=== PATIENT | female | born 1965 | race Caucasian/White ===

== ENCOUNTER 2017-07-03 09:47 | Emergency (ER) | payer MEDICARE, MEDICAID ==
[~2017-07-03] VITALS: Ht 162.6 cm; Wt 134.0 kg
[~2017-07-03 09:47] MED LIST: ASPI-1265 PO; CARV-50 PO; DOCU-20 PO; EZET10TA13 PO; HYDR-3965 PO; ISOS30TA9 PO; LANTUS SQ; LEVO100T9 PO; MIRT15TA PO; PRAV80TA3 PO; SEVE800T7 PO; ZAR5T PO
[2017-07-03] MEDS ORDERED: aspirin 81mg tab.chew PO ONE (09:55)
[2017-07-03] MEDS ORDERED: nitroGLYCERIN 0.4mg SUBLingual tab SL PRN ×2 (09:55→11:10)
[2017-07-03 10:12] LABS: BASOPHILS % (AUTO) 0.4 % (0-1); EOSINOPHILS # (AUTO) 0.2 X10'3 (0-0.9); EOSINOPHILS % (AUTO) 3.1 % (0-6); HEMATOCRIT 34.1 % (35.0-45.0); HEMOGLOBIN 11.5 g/dl (12.0-16.0); LYMPHOCYTES # (AUTO) 0.8 X10'3 (1.1-4.8); LYMPHOCYTES % (AUTO) 12.6 % (21-51); MEAN CORPUSCULAR HEMOGLOBIN 30.4 PG (27.0-31.0); MEAN CORPUSCULAR HGB CONC 33.8 % (33.0-36.5); MEAN PLATELET VOLUME 8.5 FL (7.4-10.4); MONOCYTES # (AUTO) 0.4 X10'3 (0-0.9); MONOCYTES % (AUTO) 6.2 % (2-12); NEUTROPHILS % (AUTO) 77.7 % (42-75); PLATELET COUNT 199 X10'3 (140-440); RED BLOOD COUNT 3.79 X10'6 (4.20-5.60); RED CELL DISTRIBUTION WIDTH 15.7 % (11.5-14.5); WHITE BLOOD COUNT 6.4 X10'3 (4.5-11.0)
[2017-07-03 10:21] LABS: PROTHROMBIN TIME 10.7 SECONDS (9.0-12.0)
[2017-07-03 10:34] LABS: ALANINE AMINOTRANSFERASE 12 U/L (12-78); ALBUMIN 2.8 G/DL (3.4-5.0); ALBUMIN/GLOBULIN RATIO 0.7 (1.1-1.5); ALKALINE PHOSPHATASE 73 IU/L (46-116); ANION GAP 7 (8-16); ASPARTATE AMINO TRANSFERASE 11 U/L (10-37); BILIRUBIN,TOTAL 0.8 MG/DL (0.1-1.0); BLOOD UREA NITROGEN 35 MG/DL (7-18); BUN/CREATININE RATIO 9.1 (6.6-38.0); CALCIUM 8.7 MG/DL (8.5-10.1); CHLORIDE 101 MMOL/L (99-107); CREATININE 3.86 MG/DL (0.40-0.90); GLUCOSE 275 MG/DL (70-104); POTASSIUM 4.4 MMOL/L (3.5-5.1); SODIUM 135 MMOL/L (135-145); TOTAL CARBON DIOXIDE 26.9 MMOL/L (24-32); TOTAL PROTEIN 6.8 G/DL (6.4-8.2); eGFR 12 ML/MIN
[2017-07-03 12:17] VITALS: BP 149/87
== END 2017-07-03 12:19 | disposition home or self-care (01) ==
LOC: ER 09:48
DX: R07.9 Chest pain, unspecified (principal); N18.6 End stage renal disease; E11.42 Type 2 diabetes mellitus with diabetic polyneuropathy; E11.22 Type 2 diabetes mellitus with diabetic chronic kidney disease; I13.2 Hypertensive heart and chronic kidney disease with heart failure and with stage 5 chronic kidney disease, or end stage renal disease; M79.7 Fibromyalgia; I25.2 Old myocardial infarction; I50.9 Heart failure, unspecified; G89.29 Other chronic pain; Z90.710 Acquired absence of both cervix and uterus; Z86.73 Personal history of transient ischemic attack (TIA), and cerebral infarction without residual deficits; Z79.82 Long term (current) use of aspirin; Z99.2 Dependence on renal dialysis; Z79.4 Long term (current) use of insulin; Z79.899 Other long term (current) drug therapy
CPT/HCPCS: 36415; 71045; 80053; 83880; 84484; 85025; 85610; 93005; 99285

== ENCOUNTER 2017-12-13 02:08 | Emergency (ER) | payer MEDICARE, MEDICAID ==
[~2017-12-13] VITALS: Ht 162.6 cm; Wt 123.9 kg
[2017-12-13] MEDS ORDERED: HYDR-3965 PO (02:42)
[2017-12-13] MEDS ORDERED: HYDROcodone/acetaminophen 5mg/325mg tablet PO ONE (02:45)
[2017-12-13 03:11] VITALS: BP 130/94
== END 2017-12-13 03:13 | disposition home or self-care (01) ==
LOC: ER 02:08
DX: S80.12XA Contusion of left lower leg, initial encounter (principal); M79.604 Pain in right leg; I10 Essential (primary) hypertension; E11.42 Type 2 diabetes mellitus with diabetic polyneuropathy; G89.29 Other chronic pain; M54.9 Dorsalgia, unspecified; Z79.4 Long term (current) use of insulin; Z86.73 Personal history of transient ischemic attack (TIA), and cerebral infarction without residual deficits; Z90.710 Acquired absence of both cervix and uterus; Z90.49 Acquired absence of other specified parts of digestive tract; Z79.82 Long term (current) use of aspirin; X58.XXXA Exposure to other specified factors, initial encounter; Y93.89 Activity, other specified; Y92.89 Other specified places as the place of occurrence of the external cause; Y99.8 Other external cause status
CPT/HCPCS: 99283

== ENCOUNTER 2018-04-16 10:21 | Emergency (ER) | payer MEDICARE, MEDICAID ==
[~2018-04-16] VITALS: Ht 162.6 cm; Wt 124.0 kg
[2018-04-16 10:47] LABS: BASOPHILS % (AUTO) 0.3 % (0-1); EOSINOPHILS # (AUTO) 0.1 X10'3 (0-0.9); EOSINOPHILS % (AUTO) 3.1 % (0-6); HEMATOCRIT 32.1 % (35.0-45.0); HEMOGLOBIN 10.9 g/dl (12.0-16.0); LYMPHOCYTES # (AUTO) 0.6 X10'3 (1.1-4.8); LYMPHOCYTES % (AUTO) 12.5 % (21-51); MEAN CORPUSCULAR HEMOGLOBIN 32.4 PG (27.0-31.0); MEAN CORPUSCULAR VOLUME 95.5 FL (78-98); MEAN PLATELET VOLUME 8.1 FL (7.4-10.4); MONOCYTES # (AUTO) 0.4 X10'3 (0-0.9); MONOCYTES % (AUTO) 8.5 % (2-12); NEUTROPHILS # (AUTO) 3.6 X10'3 (1.8-7.7); NEUTROPHILS % (AUTO) 75.6 % (42-75); PLATELET COUNT 187 X10'3 (140-440); RED BLOOD COUNT 3.37 X10'6 (4.20-5.60); RED CELL DISTRIBUTION WIDTH 15.8 % (11.5-14.5); WHITE BLOOD COUNT 4.8 X10'3 (4.5-11.0)
[2018-04-16 11:02] LABS: ALANINE AMINOTRANSFERASE 19 U/L (12-78); ALBUMIN 2.9 G/DL (3.4-5.0); ALBUMIN/GLOBULIN RATIO 0.7 (1.1-1.5); ALKALINE PHOSPHATASE 86 IU/L (46-116); ANION GAP 9 (8-16); ASPARTATE AMINO TRANSFERASE 16 U/L (10-37); BILIRUBIN,TOTAL 0.7 MG/DL (0.1-1.0); BLOOD UREA NITROGEN 22 MG/DL (7-18); BUN/CREATININE RATIO 8.1 (6.6-38.0); CALCIUM 8.7 MG/DL (8.5-10.1); CHLORIDE 99 MMOL/L (99-107); CREATININE 2.73 MG/DL (0.40-0.90); GLUCOSE 193 MG/DL (70-104); POTASSIUM 3.7 MMOL/L (3.5-5.1); SODIUM 140 MMOL/L (135-145); TOTAL CARBON DIOXIDE 32.5 MMOL/L (24-32); TOTAL PROTEIN 7.3 G/DL (6.4-8.2); eGFR 18 ML/MIN
[2018-04-16 12:42] LABS: CLARITY,URINE SLIGHTLY CLOUDY (Clear); COLOR,URINE YELLOW (Yellow); GLUCOSE, URINE 500 mg/dl (Neg); KETONES,URINE NEGATIVE (Neg); LEUKOCYTE ESTERASE ,URINE NEGATIVE (Neg); NITRITES, URINE NEGATIVE (Neg); OCCULT BLOOD,URINE TRACE-LYSED (Neg); PROTEIN,URINE >=300 mg/dl (Neg); UA COLLECTION TYPE NON-SPECIFIED; UROBILINOGEN,URINE 0.2 E.U/dL (0.2-1.0)
[2018-04-16 12:47] LABS: SQUAMOUS EPITHELIAL CELL,UR MANY /LPF (FEW)
[2018-04-16 12:50] LABS: URINE AMPHETAMINE SCREEN NEGATIVE (Neg); URINE BARBITUATE SCREEN NEGATIVE (Neg); URINE BENZODIAZEPINES SCREEN NEGATIVE (Neg); URINE CANNABINOID SCREEN NEGATIVE (Neg); URINE COCAINE SCREEN NEGATIVE (Neg); URINE METHADONE SCREEN NEGATIVE (Neg); URINE OPIATE SCREEN POSITIVE (Neg); URINE PHENCYCLIDINE SCREEN NEGATIVE (Neg)
[2018-04-16 12:51] LABS: BACTERIA,URINE 2+ /HPF (Neg); WBC,URINE 0-4 /HPF (0-4)
[2018-04-16 12:52] LABS: MUCUS STRANDS FEW /LPF (Neg)
--- NOTE | 2018-04-16 13:42 | NUR ---
EMILY CARGO WILL BE HERE AT 2505
--- NOTE | 2018-04-16 13:42 | NUR ---
EMILY CARGO GERMÁN BE HERE AT 11
[2018-04-16 14:02] VITALS: BP 131/88
== END 2018-04-16 14:08 | disposition home or self-care (01) ==
LOC: ER 10:22
DX: T42.6X1A Poisoning by other antiepileptic and sedative-hypnotic drugs, accidental (unintentional), initial encounter (principal); R40.0 Somnolence; R42 Dizziness and giddiness; R53.83 Other fatigue; I10 Essential (primary) hypertension; G89.29 Other chronic pain; Z86.73 Personal history of transient ischemic attack (TIA), and cerebral infarction without residual deficits; Z90.49 Acquired absence of other specified parts of digestive tract; Z90.710 Acquired absence of both cervix and uterus; Z98.890 Other specified postprocedural states; Z79.82 Long term (current) use of aspirin; Z79.4 Long term (current) use of insulin; Z79.899 Other long term (current) drug therapy; Y92.89 Other specified places as the place of occurrence of the external cause
CPT/HCPCS: 36415; 71045; 80053; 80305; 81001; 84443; 85025; 99284

== ENCOUNTER 2018-05-14 06:24 | Inpatient (IN) | payer MEDICARE, MEDICAID | END 2018-06-03 17:30 | LOC: ER 06:24 → ED HOLD 08:45 → PCU 3S 13:42 | DX: A41.9 Sepsis, unspecified organism (principal); J18.9 Pneumonia, unspecified organism; N18.6 End stage renal disease; T82.858A Stenosis of other vascular prosthetic devices, implants and grafts, initial encounter; E11.8 Type 2 diabetes mellitus with unspecified complications; Z85.72 Personal history of non-Hodgkin lymphomas; N61.0 Mastitis without abscess ==

== ENCOUNTER 2018-09-20 11:00 | Inpatient (IN) | payer MEDICARE, MEDICAID ==
[~2018-09-20] VITALS: Ht 162.6 cm; Wt 106.5 kg
[~2018-09-20 11:00] MED LIST changes: +AMIT100T61 PO; -ASPI-1265 PO; -CARV-50 PO; +CHOL50004 PO; +COL100C PO; +DIPH-423 PO; -DOCU-20 PO; -EZET10TA13 PO; +FURO80TA3 PO; +HEPA500017 SQ; -HYDR-3965 PO; +HYDR-4383 PO; +INSU100V5 IJ; -ISOS30TA9 PO; +LACT10SO32 PO; -LEVO100T9 PO; +LEVO125T8 PO; -MIRT15TA PO; +MULT1TAB74 PO; +NITR0.4T SL; +PRAM0.5T12 PO; -PRAV80TA3 PO; +PREG150C PO; +ROSU40TA22 PO; -SEVE800T7 PO; +SEVE800T8 PO; +SULF1TAB49 PO; -ZAR5T PO; +ZET10T PO; +ZOF4I IV
[2018-09-20] MEDS ORDERED: ondansetron/PF 4mg/2ml inj IV ONE ×2 (12:30→13:40)
[2018-09-20] MEDS ORDERED: morphine 4 MG/ML inj SYRINge IV ONE (12:30)
[2018-09-20] MEDS ORDERED: morphine 4 MG/ML inj SYRINge IV PRN (13:40)
[2018-09-20 14:15] LABS: BASOPHILS % (AUTO) 0.6 % (0-1); EOSINOPHILS # (AUTO) 0.1 X10'3 (0-0.9); EOSINOPHILS % (AUTO) 1.1 % (0-6); HEMATOCRIT 38.7 % (35.0-45.0); HEMOGLOBIN 12.6 g/dl (12.0-16.0); LYMPHOCYTES # (AUTO) 0.8 X10'3 (1.1-4.8); LYMPHOCYTES % (AUTO) 11.5 % (21-51); MEAN CORPUSCULAR HGB CONC 32.5 g/dL (33.0-36.5); MEAN CORPUSCULAR VOLUME 95.2 FL (78-98); MONOCYTES # (AUTO) 0.6 X10'3 (0-0.9); MONOCYTES % (AUTO) 7.6 % (2-12); NEUTROPHILS # (AUTO) 5.8 X10'3 (1.8-7.7); NEUTROPHILS % (AUTO) 79.2 % (42-75); PLATELET COUNT 172 X10'3 (140-440); RED BLOOD COUNT 4.06 X10'6 (4.20-5.60); RED CELL DISTRIBUTION WIDTH 18.4 % (11.5-14.5); WHITE BLOOD COUNT 7.3 X10'3 (4.5-11.0)
[2018-09-20 14:36] LABS: ALANINE AMINOTRANSFERASE 36 U/L (12-78); ALBUMIN 3.2 G/DL (3.4-5.0); ALBUMIN/GLOBULIN RATIO 0.7 (1.1-1.5); ALKALINE PHOSPHATASE 122 IU/L (46-116); ANION GAP 8 (8-16); ASPARTATE AMINO TRANSFERASE 22 U/L (10-37); BILIRUBIN,TOTAL 0.5 MG/DL (0.1-1.0); BLOOD UREA NITROGEN 42 MG/DL (7-18); BUN/CREATININE RATIO 7.9 (6.6-38.0); CALCIUM 8.3 MG/DL (8.5-10.1); CHLORIDE 95 MMOL/L (99-107); CREATININE 5.29 MG/DL (0.40-0.90); GLUCOSE 225 MG/DL (70-104); MAGNESIUM 2.5 MG/DL (1.5-2.4); PHOSPHORUS 5.1 MG/DL (2.3-4.5); POTASSIUM 4.4 MMOL/L (3.5-5.1); SODIUM 133 MMOL/L (135-145); TOTAL CARBON DIOXIDE 30.5 MMOL/L (24-32); eGFR 8 ML/MIN
[2018-09-20] MEDS ORDERED: bisacodyl 10mg suppository rectal RC PRN (14:45)
[2018-09-20] MEDS ORDERED: ondansetron/PF 4mg/2ml inj IV PRN (14:45)
[2018-09-20] MEDS ORDERED: acetaminophen 325mg tablet PO PRN (14:45)
[2018-09-20] MEDS ORDERED: diphenhydrAMINE 25mg capsule PO PRN (14:45)
[2018-09-20] MEDS ORDERED: dextrose 50%-water 50ml dispensing syringe IV PRN ×2 (14:50)
[2018-09-20] MEDS ORDERED: insulin Lispro (HumaLOG) vial - multi-dose SQ SCH (14:50)
[2018-09-20] MEDS ORDERED: dextrose ORAL solution 15 GM/59 ML bottle PO PRN ×2 (14:50)
[2018-09-20] MEDS ORDERED: glucagon, human recombinant 1mg kit SUBCUT PRN (14:50)
[2018-09-20] MEDS ORDERED: MESSAGE TO PHARMACY PO ONE (14:50)
[2018-09-20] MEDS ORDERED: CARV3.122 PO (15:20)
[2018-09-20] MEDS ORDERED: LEVO100T PO (15:20)
[2018-09-20] MEDS ORDERED: ATOR40TA71 PO (15:20)
[2018-09-20] MEDS ORDERED: INSU100I31 SQ (15:20)
[2018-09-20 15:21] LABS: HEMOGLOBIN A1C 8.1 % (4.5-6.2)
[2018-09-20] MEDS ORDERED: HYDR-4353 PO (15:22)
[2018-09-20] MEDS ORDERED: NOVLG SQ (15:31)
[2018-09-20] MEDS ORDERED: FURO-149 PO (15:31)
[2018-09-20] MEDS ORDERED: FURO40TA4 PO (15:31)
--- NOTE | 2018-09-20 15:35 | NUR ---
Patient in room ORTHO 4006. I have received report from Eric RN in ED and had the opportunity to ask questions and assume patient care.
[2018-09-20] MEDS ORDERED: POLY17PO36 PO (15:36)
[2018-09-20] MEDS ORDERED: ZAR5T PO (15:36)
[2018-09-20] MEDS ORDERED: PRAM0.5T3 PO ×2 (15:41)
[2018-09-20] MEDS ORDERED: ASPI81TA49 PO (15:44)
[2018-09-20] MEDS ORDERED: DIALYVITE PO (15:49)
[2018-09-20 16:00] VITALS: BP 129/71
[2018-09-20 18:00] VITALS: BP 139/76
[2018-09-20] MEDS: HYDROcodone/acetaminophen 10/325mg tab PO PRN (18:03)
--- NOTE | 2018-09-20 18:10 | NUR ---
Patient in room ORTHO 4006. I have received report from ADRY Osborne and had the opportunity to ask questions and assume patient care.
--- NOTE | 2018-09-20 18:19 | NUR ---
Problems reprioritized. Patient report given, questions answered & plan of care reviewed with Elena RIDER.
[2018-09-20] MEDS ORDERED: nitroGLYCERIN 0.4mg SUBLingual tab SL PRN (19:05)
[2018-09-20] MEDS ORDERED: HYDROcodone/acetaminophen 10/325mg tab PO PRN (19:05)
[2018-09-20] MEDS ORDERED: furosemide 40mg tablet PO SCH (20:00)
[2018-09-20] MEDS: docusate sod 100mg capsule PO SCH (20:00)
[2018-09-20] MEDS ORDERED: docusate sod 100mg capsule PO SCH (20:00)
[2018-09-20 20:15] VITALS: BP 117/67
[2018-09-20] MEDS: HYDROmorphone 1 mg/ml syringe IV PRN (20:16)
[2018-09-20] MEDS: heparin, porcine 5000 units/ml vial SQ SCH (20:19)
[2018-09-20] MEDS: levoTHYROXINE 100mcg tablet PO SCH (20:21)
[2018-09-20] MEDS: amitriptyline 50mg tablet PO SCH (20:22)
[2018-09-20] MEDS: ezetimibe 10mg tablet PO SCH (20:22)
[2018-09-20] MEDS: pramipexole 1mg tablet PO SCH (20:22)
[2018-09-20] MEDS: atorvastatin 20mg tablet PO SCH (20:23)
[2018-09-20] MEDS: carVEDilol 3.125mg tablet PO SCH (20:23)
[2018-09-20] MEDS: sevelamer carbonate 800mg tablet PO SCH (20:24)
[2018-09-20] MEDS ORDERED: temazepam 15mg capsule PO PRN (21:00)
[2018-09-20] MEDS ORDERED: non-formulary drug (Atorvastatin Calcium 1 TAB) PO SCH (21:00)
[2018-09-20] MEDS: insulin glargine (Lantus) pen - multi-dose SQ SCH ×2 (21:00→22:52)
[2018-09-20] MEDS ORDERED: PRAMIPEXOLE DI HCL PO SCH (21:00)
[2018-09-20] MEDS ORDERED: non-formulary drug (Amitriptyline HCl 2 TAB) PO SCH (21:00)
[2018-09-20 22:00] VITALS: BP 97/43
[2018-09-21] VITALS (14 sets, daily range): BP systolic 91–151; BP diastolic 40–97
[2018-09-21] MEDS: HYDROmorphone 1 mg/ml syringe IV PRN ×3 (05:14→20:26)
[2018-09-21 05:44] LABS: ALBUMIN 2.9 G/DL (3.4-5.0); ANION GAP 8 (8-16); BLOOD UREA NITROGEN 48 MG/DL (7-18); BUN/CREATININE RATIO 7.9 (6.6-38.0); CALCIUM 7.7 MG/DL (8.5-10.1); CHLORIDE 95 MMOL/L (99-107); CREATININE 6.11 MG/DL (0.40-0.90); GLUCOSE 124 MG/DL (70-104); MAGNESIUM 2.5 MG/DL (1.5-2.4); PHOSPHORUS 6.8 MG/DL (2.3-4.5); POTASSIUM 5.1 MMOL/L (3.5-5.1); SODIUM 133 MMOL/L (135-145); TOTAL CARBON DIOXIDE 30.5 MMOL/L (24-32); eGFR 7 ML/MIN
[2018-09-21 05:46] LABS: BASOPHILS % (AUTO) 0.6 % (0-1); EOSINOPHILS # (AUTO) 0.1 X10'3 (0-0.9); EOSINOPHILS % (AUTO) 1.8 % (0-6); HEMATOCRIT 36.1 % (35.0-45.0); HEMOGLOBIN 11.8 g/dl (12.0-16.0); LYMPHOCYTES % (AUTO) 13.6 % (21-51); MEAN CORPUSCULAR HEMOGLOBIN 31.3 PG (27.0-31.0); MEAN CORPUSCULAR HGB CONC 32.6 g/dL (33.0-36.5); MEAN CORPUSCULAR VOLUME 95.8 FL (78-98); MEAN PLATELET VOLUME 7.7 FL (7.4-10.4); MONOCYTES # (AUTO) 0.7 X10'3 (0-0.9); NEUTROPHILS # (AUTO) 5.7 X10'3 (1.8-7.7); PLATELET COUNT 170 X10'3 (140-440); RED BLOOD COUNT 3.77 X10'6 (4.20-5.60); RED CELL DISTRIBUTION WIDTH 17.8 % (11.5-14.5); WHITE BLOOD COUNT 7.6 X10'3 (4.5-11.0)
--- NOTE | 2018-09-21 06:05 | NUR ---
Patient in room ORTHO 4006. I have received report from Elena RIDER and had the opportunity to ask questions and assume patient care.
[2018-09-21] MEDS: furosemide 40mg tablet PO SCH ×2 (07:00→17:00)
[2018-09-21] MEDS: carVEDilol 3.125mg tablet PO SCH ×2 (08:00→20:25)
[2018-09-21] MEDS ORDERED: DIALYVITE PO SCH (08:00)
[2018-09-21] MEDS: metolazone 2.5mg tablet PO SCH (08:00)
[2018-09-21] MEDS ORDERED: PRAMIPEXOLE DI HCL PO SCH (08:00)
[2018-09-21] MEDS ORDERED: albumin (human) 25% 100ml IV 100 ML IV PRN (08:00)
[2018-09-21] MEDS ORDERED: METOLAZONE PO SCH (08:00)
[2018-09-21] MEDS: docusate sod 100mg capsule PO SCH ×2 (08:00→20:00)
[2018-09-21] MEDS: HYDROcodone/acetaminophen 10/325mg tab PO PRN ×2 (09:04→13:15)
[2018-09-21] MEDS: pramipexole 0.25mg tablet PO SCH (09:06)
[2018-09-21] MEDS: aspirin 81mg tablet.DR PO SCH (09:06)
[2018-09-21] MEDS: sevelamer carbonate 800mg tablet PO SCH ×3 (09:07→20:25)
[2018-09-21] MEDS: folic acid/vitamin B complex w/vitamin C 0.8mg tablet PO SCH (09:07)
[2018-09-21] MEDS: levoTHYROXINE 100mcg tablet PO SCH (09:07)
[2018-09-21] MEDS: vitamin D (cholecalciferol) 1,000 unit tablet PO SCH (09:08)
[2018-09-21] MEDS: ezetimibe 10mg tablet PO SCH (09:10)
[2018-09-21] MEDS: heparin, porcine 5000 units/ml vial SQ SCH ×2 (09:35→20:27)
[2018-09-21] MEDS: nystatin 15 GM powder TP SCH ×2 (13:00→21:00)
--- NOTE | 2018-09-21 13:36 | NUR ---
WOC team assessed pt per referral for breakdown under Pannus. Noted some reddened areas, some possible small skin tearing and moisture rich environment. Pt already had interdry in place under pannus with more in the room and pt's RN was notified Nystatin may be appropriate. No need for WOC to follow up at this time.
[2018-09-21] MEDS ORDERED: LIDOcaine 1%/PF 5ML 10 MG/ML VIAL SQ ONE (13:45)
[2018-09-21] MEDS ORDERED: fentaNYL/PF 50MCG/1 ML 2ML syringe IV PRN (13:45)
[2018-09-21] MEDS ORDERED: heparin 1,000 units/ml 10ml inj ICATH ONE (13:45)
[2018-09-21] MEDS ORDERED: LIDOcaine 1%/PF 5ML 10 MG/ML VIAL ONE (14:06)
[2018-09-21] MEDS ORDERED: fentaNYL/PF 50MCG/1 ML 2ML syringe ONE ×2 (14:06→14:48)
[2018-09-21] MEDS ORDERED: midazolam 2 mg/2 ml injection ONE (14:06)
[2018-09-21] MEDS ORDERED: heparin 1,000unit/ml 10ml vial 10 ML ONE (14:06)
--- NOTE | 2018-09-21 14:14 | NUR ---
Pt being taken down for TDC placement.
--- NOTE | 2018-09-21 15:06 | NUR ---
Malnutrition consult: Patient's current documented wt stable with documented weights at past visits. Pt currently on renal CHO controlled diet with documented 100% PO intake. Pt with BLE 1+ edema and documented with severe weakness r/t left arm fracture. Pt currently lacks a minimum of two criteria for malnutrition. DM consult: Pt with A1c 8.1. Attempted visit with pt at bedside however pt not present. Pt previously admitted and seen by RD 05/15/18 for DM ed with A1c 9.6. Will f/u with pt prior to d/c to see if pt has any questions regarding DM management. Pt admit with left humerus fx s/p fall. Unable to use AV fistula for HD d/t fracture, pt to get TDC per MD notes. LBM 09/20. Will continue to follow. Recommendations: 1) Continue with renal CHO controlled diet 2) Monitor need for f/u DM ed prior to d/c 3) Wt per rx Addendum: 09/21/18 at [address] Amended: Links added.
[2018-09-21] MEDS ORDERED: heparin 1,000unit/ml 10ml vial 10 ML IV ONE (15:32)
[2018-09-21] MEDS ORDERED: heparin 1,000 units/ml 10ml inj HE ONE ×2 (15:40)
--- NOTE | 2018-09-21 15:43 | NUR ---
Pt returned from TDC placement. Dialysis staff is at bedside to begin treatment.
--- NOTE | 2018-09-21 18:00 | NUR ---
Patient in room ORTHO 4006. I have received report from ADRY Osborne and had the opportunity to ask questions and assume patient care.
--- NOTE | 2018-09-21 18:31 | NUR ---
Problems reprioritized. Patient report given, questions answered & plan of care reviewed with Elena RIDER.
[2018-09-21] MEDS: atorvastatin 20mg tablet PO SCH (20:25)
[2018-09-21] MEDS: pramipexole 1mg tablet PO SCH (20:25)
[2018-09-21] MEDS: amitriptyline 50mg tablet PO SCH (20:25)
[2018-09-21] MEDS: insulin glargine (Lantus) pen - multi-dose SQ SCH ×2 (21:00→21:37)
[2018-09-22 02:53] VITALS: BP 106/62
[2018-09-22] MEDS: HYDROmorphone 1 mg/ml syringe IV PRN ×4 (04:36→17:12)
[2018-09-22 06:00] VITALS: BP 104/65
[2018-09-22 06:05] LABS: BASOPHILS % (AUTO) 0.3 % (0-1); EOSINOPHILS # (AUTO) 0.1 X10'3 (0-0.9); EOSINOPHILS % (AUTO) 1.4 % (0-6); HEMATOCRIT 34.7 % (35.0-45.0); HEMOGLOBIN 11.4 g/dl (12.0-16.0); LYMPHOCYTES # (AUTO) 0.8 X10'3 (1.1-4.8); LYMPHOCYTES % (AUTO) 10.5 % (21-51); MEAN CORPUSCULAR HEMOGLOBIN 31.3 PG (27.0-31.0); MEAN CORPUSCULAR HGB CONC 32.9 g/dL (33.0-36.5); MEAN CORPUSCULAR VOLUME 94.9 FL (78-98); MEAN PLATELET VOLUME 7.7 FL (7.4-10.4); MONOCYTES # (AUTO) 0.6 X10'3 (0-0.9); NEUTROPHILS # (AUTO) 6.1 X10'3 (1.8-7.7); NEUTROPHILS % (AUTO) 79.8 % (42-75); PLATELET COUNT 147 X10'3 (140-440); RED BLOOD COUNT 3.66 X10'6 (4.20-5.60); RED CELL DISTRIBUTION WIDTH 18.2 % (11.5-14.5); WHITE BLOOD COUNT 7.7 X10'3 (4.5-11.0)
--- NOTE | 2018-09-22 06:10 | NUR ---
Patient in room ORTHO 4006. I have received report from Elena RIDER and had the opportunity to ask questions and assume patient care.
--- NOTE | 2018-09-22 06:14 | NUR ---
Problems reprioritized. Patient report given, questions answered & plan of care reviewed with ADRY Osborne.
[2018-09-22 06:18] LABS: ALBUMIN 2.7 G/DL (3.4-5.0); ANION GAP 7 (8-16); BLOOD UREA NITROGEN 32 MG/DL (7-18); BUN/CREATININE RATIO 6.5 (6.6-38.0); CALCIUM 7.7 MG/DL (8.5-10.1); CHLORIDE 97 MMOL/L (99-107); CREATININE 4.89 MG/DL (0.40-0.90); GLUCOSE 124 MG/DL (70-104); MAGNESIUM 2.2 MG/DL (1.5-2.4); PHOSPHORUS 5.7 MG/DL (2.3-4.5); POTASSIUM 5.2 MMOL/L (3.5-5.1); SODIUM 132 MMOL/L (135-145); TOTAL CARBON DIOXIDE 28.3 MMOL/L (24-32); eGFR 9 ML/MIN
[2018-09-22] MEDS: furosemide 40mg tablet PO SCH ×3 (07:00→17:00)
[2018-09-22] MEDS: metolazone 2.5mg tablet PO SCH (08:00)
[2018-09-22] MEDS: docusate sod 100mg capsule PO SCH ×2 (08:00→20:37)
[2018-09-22] MEDS: carVEDilol 3.125mg tablet PO SCH ×2 (08:00→20:37)
[2018-09-22] MEDS: aspirin 81mg tablet.DR PO SCH (08:01)
[2018-09-22] MEDS: sevelamer carbonate 800mg tablet PO SCH ×3 (08:01→20:37)
[2018-09-22] MEDS: folic acid/vitamin B complex w/vitamin C 0.8mg tablet PO SCH (08:01)
[2018-09-22] MEDS: pramipexole 0.25mg tablet PO SCH (08:01)
[2018-09-22] MEDS: vitamin D (cholecalciferol) 1,000 unit tablet PO SCH (08:02)
[2018-09-22] MEDS: levoTHYROXINE 100mcg tablet PO SCH (08:02)
[2018-09-22] MEDS: heparin, porcine 5000 units/ml vial SQ SCH ×2 (08:03→20:38)
[2018-09-22] MEDS: nystatin 15 GM powder TP SCH ×3 (08:03→20:38)
[2018-09-22] MEDS: ezetimibe 10mg tablet PO SCH (08:03)
[2018-09-22 10:00] VITALS: BP 101/60
[2018-09-22] MEDS: HYDROcodone/acetaminophen 10/325mg tab PO PRN ×2 (11:12→19:14)
--- NOTE | 2018-09-22 13:44 | NUR ---
F/u for DM consult: Pt seen at bedside states her best friend/neighbor who cooks meals for her d/t being legally blind has helped pt better manage her DM by preparing meals that follow DM and renal diet. Pt provided with updated DM written handout with referral to outpatient DM class and RD contact information. Pt reports decreased appetite s/p TDC placement, with no food preferences however requests no coffee and states she doesn't like peas or seafood, d/w dietary. Pt agrees to chop all food d/t left arm fracture and unable to see, d/w dietary. Pt denies any food allergies, difficulty chewing/swallowing, or constipation/diarrhea. Will continue to follow. Addendum: 09/22/18 at [address] Amended: Links added.
[2018-09-22 18:00] VITALS: BP 136/71
--- NOTE | 2018-09-22 18:00 | NUR ---
Patient in room ORTHO 4006. I have received report from ADRY Osborne and had the opportunity to ask questions and assume patient care.
--- NOTE | 2018-09-22 18:11 | NUR ---
Problems reprioritized. Patient report given, questions answered & plan of care reviewed with Elena RIDER.
[2018-09-22] MEDS: pramipexole 1mg tablet PO SCH (20:37)
[2018-09-22] MEDS: atorvastatin 20mg tablet PO SCH (20:37)
[2018-09-22] MEDS: amitriptyline 50mg tablet PO SCH (20:37)
[2018-09-22] MEDS: insulin glargine (Lantus) pen - multi-dose SQ SCH ×2 (20:54→20:58)
[2018-09-22 22:00] VITALS: BP 139/84
[2018-09-23] MEDS: HYDROmorphone 1 mg/ml syringe IV PRN ×4 (01:50→20:56)
[2018-09-23] MEDS: HYDROcodone/acetaminophen 10/325mg tab PO PRN ×3 (04:10→17:36)
[2018-09-23 06:00] VITALS: BP 128/79
--- NOTE | 2018-09-23 06:00 | NUR ---
Patient in room ORTHO 4006. I have received report from Elena RIDER and had the opportunity to ask questions and assume patient care.
--- NOTE | 2018-09-23 06:16 | NUR ---
Problems reprioritized. Patient report given, questions answered & plan of care reviewed with ADRY Dumont.
[2018-09-23 06:29] LABS: BASOPHILS % (AUTO) 0.3 % (0-1); EOSINOPHILS # (AUTO) 0.2 X10'3 (0-0.9); EOSINOPHILS % (AUTO) 2.4 % (0-6); HEMATOCRIT 33.3 % (35.0-45.0); LYMPHOCYTES # (AUTO) 0.9 X10'3 (1.1-4.8); LYMPHOCYTES % (AUTO) 13.5 % (21-51); MEAN CORPUSCULAR HEMOGLOBIN 31.4 PG (27.0-31.0); MEAN CORPUSCULAR HGB CONC 32.9 g/dL (33.0-36.5); MEAN CORPUSCULAR VOLUME 95.4 FL (78-98); MEAN PLATELET VOLUME 7.7 FL (7.4-10.4); MONOCYTES # (AUTO) 0.6 X10'3 (0-0.9); MONOCYTES % (AUTO) 8.3 % (2-12); NEUTROPHILS % (AUTO) 75.5 % (42-75); PLATELET COUNT 138 X10'3 (140-440); RED BLOOD COUNT 3.49 X10'6 (4.20-5.60); RED CELL DISTRIBUTION WIDTH 18.1 % (11.5-14.5); WHITE BLOOD COUNT 6.7 X10'3 (4.5-11.0)
[2018-09-23 06:47] LABS: ALBUMIN 2.6 G/DL (3.4-5.0); ANION GAP 7 (8-16); BLOOD UREA NITROGEN 50 MG/DL (7-18); BUN/CREATININE RATIO 7.8 (6.6-38.0); CALCIUM 8.4 MG/DL (8.5-10.1); CHLORIDE 96 MMOL/L (99-107); CREATININE 6.39 MG/DL (0.40-0.90); GLUCOSE 116 MG/DL (70-104); MAGNESIUM 2.5 MG/DL (1.5-2.4); PHOSPHORUS 7.3 MG/DL (2.3-4.5); POTASSIUM 5.5 MMOL/L (3.5-5.1); SODIUM 131 MMOL/L (135-145); TOTAL CARBON DIOXIDE 28.3 MMOL/L (24-32); eGFR 7 ML/MIN
[2018-09-23] MEDS: furosemide 40mg tablet PO SCH ×3 (07:57→17:36)
[2018-09-23] MEDS: ezetimibe 10mg tablet PO SCH (07:58)
[2018-09-23] MEDS: levoTHYROXINE 100mcg tablet PO SCH (07:58)
[2018-09-23] MEDS: docusate sod 100mg capsule PO SCH ×2 (07:58→20:47)
[2018-09-23] MEDS: vitamin D (cholecalciferol) 1,000 unit tablet PO SCH (07:58)
[2018-09-23] MEDS: carVEDilol 3.125mg tablet PO SCH ×2 (07:58→20:49)
[2018-09-23] MEDS: aspirin 81mg tablet.DR PO SCH (07:58)
[2018-09-23] MEDS: folic acid/vitamin B complex w/vitamin C 0.8mg tablet PO SCH (07:58)
[2018-09-23] MEDS: pramipexole 0.25mg tablet PO SCH (07:59)
[2018-09-23] MEDS: heparin, porcine 5000 units/ml vial SQ SCH ×2 (07:59→20:46)
[2018-09-23] MEDS: nystatin 15 GM powder TP SCH ×3 (08:00→20:57)
[2018-09-23] MEDS: metolazone 2.5mg tablet PO SCH (08:00)
[2018-09-23] MEDS: sevelamer carbonate 800mg tablet PO SCH ×3 (08:13→20:47)
[2018-09-23 10:00] VITALS: BP 111/66
[2018-09-23 18:00] VITALS: BP 103/58
--- NOTE | 2018-09-23 18:34 | NUR ---
Problems reprioritized. Patient report given, questions answered & plan of care reviewed with Pat RN.
--- NOTE | 2018-09-23 19:00 | NUR ---
pt reports the last time she urinated was prior to admission; states she goes in small am & july void 3-4 x's /day; pt getting dialysis via right chest, tunnel cath ([facility]); received in report last HD was last monday Addendum: 09/24/18 at 0124 by Tara Strickland RN Amended: Links added.
[2018-09-23] MEDS: atorvastatin 20mg tablet PO SCH (20:47)
[2018-09-23] MEDS: amitriptyline 50mg tablet PO SCH (20:47)
[2018-09-23] MEDS: pramipexole 1mg tablet PO SCH (20:47)
[2018-09-23] MEDS: insulin glargine (Lantus) pen - multi-dose SQ SCH ×2 (21:00→21:09)
[2018-09-23 22:00] VITALS: BP 111/65
[2018-09-24] MEDS: HYDROcodone/acetaminophen 10/325mg tab PO PRN ×4 (01:25→23:29)
[2018-09-24] MEDS: HYDROmorphone 1 mg/ml syringe IV PRN ×2 (05:04→17:10)
[2018-09-24 06:00] VITALS: BP 122/75
--- NOTE | 2018-09-24 06:32 | NUR ---
Patient in room ORTHO 4014. I have received report from Robina RN and had the opportunity to ask questions and assume patient care.
[2018-09-24 06:43] LABS: BASOPHILS % (AUTO) 0.3 % (0-1); EOSINOPHILS # (AUTO) 0.1 X10'3 (0-0.9); EOSINOPHILS % (AUTO) 2.3 % (0-6); HEMATOCRIT 31.6 % (35.0-45.0); HEMOGLOBIN 10.6 g/dl (12.0-16.0); LYMPHOCYTES % (AUTO) 16.2 % (21-51); MEAN CORPUSCULAR HGB CONC 33.4 g/dL (33.0-36.5); MEAN CORPUSCULAR VOLUME 95.7 FL (78-98); MEAN PLATELET VOLUME 7.7 FL (7.4-10.4); MONOCYTES # (AUTO) 0.6 X10'3 (0-0.9); MONOCYTES % (AUTO) 9.2 % (2-12); NEUTROPHILS # (AUTO) 4.6 X10'3 (1.8-7.7); PLATELET COUNT 146 X10'3 (140-440); RED BLOOD COUNT 3.31 X10'6 (4.20-5.60); RED CELL DISTRIBUTION WIDTH 18.5 % (11.5-14.5); WHITE BLOOD COUNT 6.4 X10'3 (4.5-11.0)
[2018-09-24 06:59] LABS: ALBUMIN 2.5 G/DL (3.4-5.0); ANION GAP 10 (8-16); BLOOD UREA NITROGEN 63 MG/DL (7-18); BUN/CREATININE RATIO 7.8 (6.6-38.0); CALCIUM 8.3 MG/DL (8.5-10.1); CHLORIDE 96 MMOL/L (99-107); CREATININE 8.05 MG/DL (0.40-0.90); GLUCOSE 91 MG/DL (70-104); MAGNESIUM 2.5 MG/DL (1.5-2.4); PHOSPHORUS 8.5 MG/DL (2.3-4.5); SODIUM 133 MMOL/L (135-145); TOTAL CARBON DIOXIDE 26.7 MMOL/L (24-32); eGFR 5 ML/MIN
[2018-09-24 07:07] LABS: POTASSIUM 6.1 MMOL/L (3.5-5.1)
--- NOTE | 2018-09-24 07:15 | NUR ---
Critical lab value received; potassium 6.1. Dr. Hernandez was notified. Order received from Dr. Hernandez: no lab draws on dialysis patient.
[2018-09-24] MEDS: levoTHYROXINE 100mcg tablet PO SCH (07:42)
[2018-09-24] MEDS: furosemide 40mg tablet PO SCH ×2 (07:42→17:09)
[2018-09-24] MEDS: vitamin D (cholecalciferol) 1,000 unit tablet PO SCH (07:42)
[2018-09-24] MEDS: pramipexole 0.25mg tablet PO SCH (07:43)
[2018-09-24] MEDS: docusate sod 100mg capsule PO SCH ×2 (07:43→19:38)
[2018-09-24] MEDS: aspirin 81mg tablet.DR PO SCH (07:43)
[2018-09-24] MEDS: carVEDilol 3.125mg tablet PO SCH ×2 (07:43→19:38)
[2018-09-24] MEDS: sevelamer carbonate 800mg tablet PO SCH ×3 (07:44→21:17)
[2018-09-24] MEDS: ezetimibe 10mg tablet PO SCH (07:44)
[2018-09-24] MEDS: folic acid/vitamin B complex w/vitamin C 0.8mg tablet PO SCH (07:44)
[2018-09-24] MEDS: heparin, porcine 5000 units/ml vial SQ SCH ×2 (07:45→19:38)
[2018-09-24] MEDS: nystatin 15 GM powder TP SCH ×3 (07:45→21:56)
[2018-09-24] MEDS: metolazone 2.5mg tablet PO SCH (07:53)
[2018-09-24] MEDS ORDERED: normal saline 1000ml 250 ML IV PRN (08:00)
[2018-09-24] MEDS ORDERED: heparin 1,000unit/ml 10ml vial 10 ML IV ONE (08:00)
[2018-09-24] MEDS ORDERED: heparin 1,000 units/ml 10ml inj HE ONE ×2 (08:00)
[2018-09-24 10:00] VITALS: BP 98/55
[2018-09-24 18:00] VITALS: BP 89/51
--- NOTE | 2018-09-24 18:10 | NUR ---
Problems reprioritized. Patient report given, questions answered & plan of care reviewed with Siena RIDER.
--- NOTE | 2018-09-24 18:57 | NUR ---
Patient in room ORTHO 4014. I have received report from Julia RIDER and had the opportunity to ask questions and assume patient care.
[2018-09-24] MEDS: insulin glargine (Lantus) pen - multi-dose SQ SCH ×2 (21:00→21:22)
[2018-09-24] MEDS: amitriptyline 50mg tablet PO SCH (21:16)
[2018-09-24] MEDS: atorvastatin 20mg tablet PO SCH (21:17)
[2018-09-24] MEDS: pramipexole 1mg tablet PO SCH (21:17)
[2018-09-24 22:00] VITALS: BP 97/51
[2018-09-25 05:00] VITALS: BP 118/70
[2018-09-25 06:00] VITALS: BP 118/70
--- NOTE | 2018-09-25 06:23 | NUR ---
Problems reprioritized. Patient report given, questions answered & plan of care reviewed with Mima RIDER.
[2018-09-25] MEDS: furosemide 40mg tablet PO SCH ×3 (07:18→16:43)
[2018-09-25] MEDS: docusate sod 100mg capsule PO SCH ×2 (07:18→20:14)
[2018-09-25] MEDS: carVEDilol 3.125mg tablet PO SCH ×2 (07:21→20:14)
[2018-09-25] MEDS: aspirin 81mg tablet.DR PO SCH (07:21)
[2018-09-25] MEDS: levoTHYROXINE 100mcg tablet PO SCH (07:22)
[2018-09-25] MEDS: metolazone 2.5mg tablet PO SCH (07:22)
[2018-09-25] MEDS: sevelamer carbonate 800mg tablet PO SCH ×3 (07:22→20:59)
[2018-09-25] MEDS: vitamin D (cholecalciferol) 1,000 unit tablet PO SCH (07:22)
[2018-09-25] MEDS: folic acid/vitamin B complex w/vitamin C 0.8mg tablet PO SCH (07:22)
[2018-09-25] MEDS: ezetimibe 10mg tablet PO SCH (07:23)
[2018-09-25] MEDS: heparin, porcine 5000 units/ml vial SQ SCH ×2 (07:24→20:14)
[2018-09-25] MEDS: HYDROcodone/acetaminophen 10/325mg tab PO PRN ×3 (07:26→21:05)
[2018-09-25] MEDS: nystatin 15 GM powder TP SCH ×3 (08:00→20:13)
[2018-09-25] MEDS ORDERED: HYDROmorphone 2mg tablet PO PRN (08:35)
[2018-09-25 10:00] VITALS: BP 121/72
[2018-09-25] MEDS: pramipexole 0.25mg tablet PO SCH (10:14)
--- NOTE | 2018-09-25 14:19 | NUR ---
reassessment: Pt PO 25% avg meals s/p TDC access site placement since L arm fx. Pt seen by RD and reports low PO r/t pain at this time and endorses good appetite. Pt would like to try Nepro TIDWM but building supervisor already rounded today; RD d/w RN for Nepro TIDWM per MD approval. Would need MD verification prior to sending on fluid restricted tray. Pt also constipated LBM 09/20 likely also effecting PO; RN is aware and working on intervention during RD visit. Pt K/Mg/Phos all elevated s/p HD; MD aware and pt receiving Phos-binder on renal diet. Will continue to monitor for additional ONS/bowel care needs. Recommendations: 1) Continue with renal CHO controlled diet, 1.2L fluid-restricted diet 2) Chop all TID; Nepro TIDWM per MD approval 3) talking books library clerk to help fill out menu daily 4) routine bowel care 5) Wt per rx Addendum: 09/25/18 at [address] Amended: Links added.
[2018-09-25 18:00] VITALS: BP 121/62
--- NOTE | 2018-09-25 18:20 | NUR ---
Received report from Mima RIDER, assumed care of patient with Elena RIDER.
--- NOTE | 2018-09-25 18:20 | NUR ---
Patient in room ORTH[facility] 4014. I have received report from ADRY Guillermo and had the opportunity to ask questions and assume patient care.
--- NOTE | 2018-09-25 18:37 | NUR ---
Problems reprioritized. Patient report given, questions answered & plan of care reviewed with ADRY Bob.
[2018-09-25] MEDS: atorvastatin 20mg tablet PO SCH (20:13)
[2018-09-25] MEDS: amitriptyline 50mg tablet PO SCH (20:14)
[2018-09-25] MEDS: pramipexole 1mg tablet PO SCH (20:14)
[2018-09-25] MEDS: insulin glargine (Lantus) pen - multi-dose SQ SCH ×2 (21:00→21:08)
[2018-09-25 22:00] VITALS: BP 150/77
[2018-09-25] MEDS: methylnaltrexone br 12mg/0.6ml inj***SubQ only SQ SCH (22:59)
[2018-09-26] MEDS: HYDROcodone/acetaminophen 10/325mg tab PO PRN ×5 (00:47→22:38)
[2018-09-26 06:00] VITALS: BP 156/57
--- NOTE | 2018-09-26 06:35 | NUR ---
Patient in room ORTHO 4014. I have received report from Elena/Lise and had the opportunity to ask questions and assume patient care.
--- NOTE | 2018-09-26 06:38 | NUR ---
Gave report to India RIDER with Elena RIDER.
[2018-09-26] MEDS: furosemide 40mg tablet PO SCH ×2 (07:00→17:00)
[2018-09-26] MEDS: docusate sod 100mg capsule PO SCH ×2 (07:39→20:53)
[2018-09-26] MEDS: folic acid/vitamin B complex w/vitamin C 0.8mg tablet PO SCH (07:40)
[2018-09-26] MEDS: pramipexole 0.25mg tablet PO SCH (07:40)
[2018-09-26] MEDS: sevelamer carbonate 800mg tablet PO SCH ×3 (07:40→20:53)
[2018-09-26] MEDS: carVEDilol 3.125mg tablet PO SCH ×2 (07:40→20:00)
[2018-09-26] MEDS: levoTHYROXINE 100mcg tablet PO SCH (07:40)
[2018-09-26] MEDS: aspirin 81mg tablet.DR PO SCH (07:40)
[2018-09-26] MEDS: ezetimibe 10mg tablet PO SCH (07:41)
[2018-09-26] MEDS ORDERED: heparin 1,000unit/ml 10ml vial 10 ML IV ONE (07:41)
[2018-09-26] MEDS ORDERED: normal saline 1000ml 250 ML IV PRN (07:41)
[2018-09-26] MEDS: vitamin D (cholecalciferol) 1,000 unit tablet PO SCH (07:41)
[2018-09-26] MEDS: nystatin 15 GM powder TP SCH ×3 (07:42→21:00)
[2018-09-26] MEDS: heparin, porcine 5000 units/ml vial SQ SCH ×2 (07:42→20:58)
[2018-09-26] MEDS ORDERED: heparin 1,000 units/ml 10ml inj HE ONE ×2 (07:45→08:40)
[2018-09-26] MEDS: metolazone 2.5mg tablet PO SCH (09:17)
[2018-09-26 10:00] VITALS: BP 132/83
[2018-09-26 18:00] VITALS: BP 94/52
--- NOTE | 2018-09-26 18:25 | NUR ---
Patient in room ORTHO 4014. I have received report from ADRY Osborne and had the opportunity to ask questions and assume patient care.
--- NOTE | 2018-09-26 18:30 | NUR ---
Problems reprioritized. Patient report given, questions answered & plan of care reviewed with Elena RIDER.
[2018-09-26 20:52] VITALS: BP 97/60
[2018-09-26] MEDS: amitriptyline 50mg tablet PO SCH (20:53)
[2018-09-26] MEDS: pramipexole 1mg tablet PO SCH (20:53)
[2018-09-26] MEDS: atorvastatin 20mg tablet PO SCH (20:53)
[2018-09-26] MEDS: insulin glargine (Lantus) pen - multi-dose SQ SCH ×2 (21:00→21:01)
[2018-09-26 22:00] VITALS: BP 104/54
[2018-09-27] MEDS: HYDROcodone/acetaminophen 10/325mg tab PO PRN ×2 (03:35→07:46)
--- NOTE | 2018-09-27 06:00 | NUR ---
Problems reprioritized. Patient report given, questions answered & plan of care reviewed with ADRY Garber.
[2018-09-27 06:30] VITALS: BP 128/61
--- NOTE | 2018-09-27 06:41 | NUR ---
Patient in room ORTHO 4014. I have received report from Elena and had the opportunity to ask questions and assume patient care.
[2018-09-27] MEDS: vitamin D (cholecalciferol) 1,000 unit tablet PO SCH (07:45)
[2018-09-27] MEDS: heparin, porcine 5000 units/ml vial SQ SCH ×2 (07:45→20:20)
[2018-09-27] MEDS: docusate sod 100mg capsule PO SCH ×2 (07:46→20:21)
[2018-09-27] MEDS: levoTHYROXINE 100mcg tablet PO SCH (07:46)
[2018-09-27] MEDS: folic acid/vitamin B complex w/vitamin C 0.8mg tablet PO SCH (07:46)
[2018-09-27] MEDS: carVEDilol 3.125mg tablet PO SCH (07:46)
[2018-09-27] MEDS: ezetimibe 10mg tablet PO SCH (07:46)
[2018-09-27] MEDS: metolazone 2.5mg tablet PO SCH (07:46)
[2018-09-27] MEDS: pramipexole 0.25mg tablet PO SCH (07:47)
[2018-09-27] MEDS: methylnaltrexone br 12mg/0.6ml inj***SubQ only SQ SCH (07:47)
[2018-09-27] MEDS: aspirin 81mg tablet.DR PO SCH (07:47)
[2018-09-27] MEDS: furosemide 40mg tablet PO SCH (07:47)
[2018-09-27] MEDS: nystatin 15 GM powder TP SCH ×3 (07:47→20:27)
[2018-09-27] MEDS: sevelamer carbonate 800mg tablet PO SCH ×3 (07:47→20:21)
[2018-09-27] MEDS ORDERED: methylnaltrexone br 12mg/0.6ml inj***SubQ only SQ SCH (08:00)
[2018-09-27 10:00] VITALS: BP 90/62
[2018-09-27] MEDS ORDERED: normal saline 1000ml 1,000 ML IV ONE (11:20)
--- NOTE | 2018-09-27 11:52 | NUR ---
BP 90/62. Pt states she feels dizzy and weak. Notified Dr Hernandez who ordered to dc lasix and coreg and give 1L bolus of NS. Pts IV has gone bad. Notified Dr Hernandez and he stated to call telesales agent so fluids can be given through dialysis access. Informed him Dr Galloway has written order to only use this access for dialysis. He stated he is the one that decides this, and that it is ok to administer fluids through there. Called telesales agent Shanice to notify her.
[2018-09-27] MEDS ORDERED: heparin 1,000 units/ml 10ml inj HE ONE ×2 (12:20→12:55)
[2018-09-27] MEDS ORDERED: normal saline 1000ml 250 ML IV PRN (12:49)
[2018-09-27] MEDS ORDERED: normal saline 1000ml 100 ML IV PRN (12:49)
[2018-09-27 13:44] LABS: BASOPHILS # (AUTO) 0.1 X10'3 (0-0.2); BASOPHILS % (AUTO) 1.2 % (0-1); EOSINOPHILS # (AUTO) 0.1 X10'3 (0-0.9); EOSINOPHILS % (AUTO) 2.4 % (0-6); HEMATOCRIT 35.3 % (35.0-45.0); HEMOGLOBIN 11.7 g/dl (12.0-16.0); LYMPHOCYTES # (AUTO) 1.2 X10'3 (1.1-4.8); LYMPHOCYTES % (AUTO) 19.3 % (21-51); MEAN CORPUSCULAR HEMOGLOBIN 31.5 PG (27.0-31.0); MEAN CORPUSCULAR VOLUME 95.4 FL (78-98); MEAN PLATELET VOLUME 7.7 FL (7.4-10.4); MONOCYTES # (AUTO) 0.6 X10'3 (0-0.9); MONOCYTES % (AUTO) 10.4 % (2-12); NEUTROPHILS % (AUTO) 66.7 % (42-75); PLATELET COUNT 194 X10'3 (140-440); RED CELL DISTRIBUTION WIDTH 18.1 % (11.5-14.5)
[2018-09-27 14:19] LABS: ALANINE AMINOTRANSFERASE 28 U/L (12-78); ALBUMIN 2.9 G/DL (3.4-5.0); ALBUMIN/GLOBULIN RATIO 0.5 (1.1-1.5); ALKALINE PHOSPHATASE 125 IU/L (46-116); ANION GAP 9 (8-16); ASPARTATE AMINO TRANSFERASE 28 U/L (10-37); BILIRUBIN,TOTAL 0.6 MG/DL (0.1-1.0); BLOOD UREA NITROGEN 39 MG/DL (7-18); BUN/CREATININE RATIO 6.6 (6.6-38.0); CALCIUM 9.2 MG/DL (8.5-10.1); CHLORIDE 98 MMOL/L (99-107); CREATININE 5.89 MG/DL (0.40-0.90); GLUCOSE 119 MG/DL (70-104); POTASSIUM 4.8 MMOL/L (3.5-5.1); SODIUM 136 MMOL/L (135-145); TOTAL CARBON DIOXIDE 29.3 MMOL/L (24-32); TOTAL PROTEIN 8.3 G/DL (6.4-8.2); eGFR 7 ML/MIN
--- NOTE | 2018-09-27 14:36 | NUR ---
reassessment: Pt PO improved slightly 25-50% meals w/ 50% avg past 2 days. Still no BM since 09/20 receiving colace and relistor. NU d/w RN for additional bowel care per MD approval. Power pudding adding w/ dinner one time; ok w/ current diet given low PO on HD; dietary notified. First scale wt 202kg most accurate wt. Will continue to monitor for additional bowel care needs. Recommendations: 1) Continue with renal CHO controlled diet, 1.2L fluid-restricted diet 2) Chop all TID; Nepro TIDWM per MD approval 3) government clerk to help fill out menu daily 4) routine bowel care; power pudding at dinner for constipation 5) Wt per rx Addendum: 09/27/18 at [address] Amended: Links added.
--- NOTE | 2018-09-27 14:38 | NUR ---
wastewater technician, Jim here to administer bolus of saline x 1L. Pts BP after infusion now up to 101/56.
[2018-09-27 18:00] VITALS: BP 130/82
--- NOTE | 2018-09-27 18:30 | NUR ---
Problems reprioritized. Patient report given, questions answered & plan of care reviewed with Lul.
--- NOTE | 2018-09-27 18:31 | NUR ---
Patient in room ORTHO 4014. I have received report from ADRY Garber and had the opportunity to ask questions and assume patient care.
[2018-09-27] MEDS: pramipexole 1mg tablet PO SCH (20:21)
[2018-09-27] MEDS: atorvastatin 20mg tablet PO SCH (20:21)
[2018-09-27] MEDS: amitriptyline 50mg tablet PO SCH (20:21)
[2018-09-27] MEDS: HYDROcodone/acetaminophen 5mg/325mg tablet PO PRN (20:47)
[2018-09-27] MEDS: insulin glargine (Lantus) pen - multi-dose SQ SCH ×2 (20:51→21:00)
[2018-09-27 22:00] VITALS: BP 137/79
[2018-09-28] MEDS: HYDROcodone/acetaminophen 5mg/325mg tablet PO PRN ×4 (01:55→15:43)
--- NOTE | 2018-09-28 06:12 | NUR ---
Problems reprioritized. Patient report given, questions answered & plan of care reviewed with ADRY Garber.
--- NOTE | 2018-09-28 06:22 | NUR ---
Patient in room ORTHO 4014. I have received report from Lul and had the opportunity to ask questions and assume patient care.
[2018-09-28 06:30] VITALS: BP 129/77
[2018-09-28] MEDS: vitamin D (cholecalciferol) 1,000 unit tablet PO SCH (07:55)
[2018-09-28] MEDS: aspirin 81mg tablet.DR PO SCH (07:55)
[2018-09-28] MEDS: docusate sod 100mg capsule PO SCH ×2 (07:55→20:30)
[2018-09-28] MEDS: pramipexole 0.25mg tablet PO SCH (07:55)
[2018-09-28] MEDS: metolazone 2.5mg tablet PO SCH (07:55)
[2018-09-28] MEDS: heparin, porcine 5000 units/ml vial SQ SCH ×2 (07:55→22:09)
[2018-09-28] MEDS: levoTHYROXINE 100mcg tablet PO SCH (07:55)
[2018-09-28] MEDS: ezetimibe 10mg tablet PO SCH (07:56)
[2018-09-28] MEDS: folic acid/vitamin B complex w/vitamin C 0.8mg tablet PO SCH (07:56)
[2018-09-28] MEDS: nystatin 15 GM powder TP SCH ×3 (07:56→20:32)
[2018-09-28] MEDS: sevelamer carbonate 800mg tablet PO SCH ×3 (07:56→20:30)
[2018-09-28] MEDS ORDERED: heparin 1,000 units/ml 10ml inj HE ONE ×2 (09:10→19:30)
[2018-09-28 09:30] VITALS: BP 125/75
[2018-09-28] MEDS: polyethylene glycol 3350 17gm powd pack PO SCH (15:41)
--- NOTE | 2018-09-28 17:27 | NUR ---
Spoke with asphalt paving superintendent, Jim who stated dialysis will be done today.
--- NOTE | 2018-09-28 18:12 | NUR ---
Problems reprioritized. Patient report given, questions answered & plan of care reviewed with Tracy.
[2018-09-28 19:00] VITALS: BP 140/84
[2018-09-28] MEDS ORDERED: heparin 1,000unit/ml 10ml vial 10 ML IV ONE (19:25)
[2018-09-28] MEDS: pramipexole 1mg tablet PO SCH (20:30)
[2018-09-28] MEDS: atorvastatin 20mg tablet PO SCH (20:30)
[2018-09-28] MEDS: amitriptyline 50mg tablet PO SCH (20:31)
[2018-09-28] MEDS: insulin glargine (Lantus) pen - multi-dose SQ SCH ×2 (21:00→22:14)
[2018-09-28 22:00] VITALS: BP 120/77
[2018-09-29 06:00] VITALS: BP 111/65
--- NOTE | 2018-09-29 06:30 | NUR ---
Patient in room ORTHO 4014. I have received report from Tracy RIDER and had the opportunity to ask questions and assume patient care.
[2018-09-29] MEDS: HYDROcodone/acetaminophen 5mg/325mg tablet PO PRN ×3 (07:12→21:18)
[2018-09-29] MEDS: docusate sod 100mg capsule PO SCH ×2 (08:03→19:50)
[2018-09-29] MEDS: aspirin 81mg tablet.DR PO SCH (08:03)
[2018-09-29] MEDS: polyethylene glycol 3350 17gm powd pack PO SCH (08:03)
[2018-09-29] MEDS: levoTHYROXINE 100mcg tablet PO SCH (08:04)
[2018-09-29] MEDS: folic acid/vitamin B complex w/vitamin C 0.8mg tablet PO SCH (08:04)
[2018-09-29] MEDS: vitamin D (cholecalciferol) 1,000 unit tablet PO SCH (08:04)
[2018-09-29] MEDS: metolazone 2.5mg tablet PO SCH (08:04)
[2018-09-29] MEDS: pramipexole 0.25mg tablet PO SCH (08:04)
[2018-09-29] MEDS: sevelamer carbonate 800mg tablet PO SCH ×3 (08:04→21:10)
[2018-09-29] MEDS: methylnaltrexone br 12mg/0.6ml inj***SubQ only SQ SCH (08:05)
[2018-09-29] MEDS: heparin, porcine 5000 units/ml vial SQ SCH ×2 (08:05→19:51)
[2018-09-29] MEDS: ezetimibe 10mg tablet PO SCH (08:05)
[2018-09-29] MEDS: nystatin 15 GM powder TP SCH ×3 (08:07→21:20)
[2018-09-29 10:00] VITALS: BP 104/69
[2018-09-29 17:00] VITALS: BP 109/32
--- NOTE | 2018-09-29 18:27 | NUR ---
Problems reprioritized. Patient report given, questions answered & plan of care reviewed with Cass RIDER.
--- NOTE | 2018-09-29 18:27 | NUR ---
Patient in room ORTHO 4014. I have received report from India RIDER and had the opportunity to ask questions and assume patient care.
[2018-09-29] MEDS: insulin glargine (Lantus) pen - multi-dose SQ SCH ×2 (21:00→21:13)
[2018-09-29] MEDS: atorvastatin 20mg tablet PO SCH (21:10)
[2018-09-29] MEDS: amitriptyline 50mg tablet PO SCH (21:10)
[2018-09-29] MEDS: pramipexole 1mg tablet PO SCH (21:10)
[2018-09-29 22:00] VITALS: BP 133/74
[2018-09-30] MEDS: HYDROcodone/acetaminophen 10/325mg tab PO PRN ×4 (02:53→23:29)
[2018-09-30 06:00] VITALS: BP 149/82
--- NOTE | 2018-09-30 06:28 | NUR ---
Problems reprioritized. Patient report given, questions answered & plan of care reviewed with Mima RIDER.
[2018-09-30] MEDS: nystatin 15 GM powder TP SCH ×3 (08:00→21:45)
[2018-09-30] MEDS: aspirin 81mg tablet.DR PO SCH (08:39)
[2018-09-30] MEDS: polyethylene glycol 3350 17gm powd pack PO SCH (08:39)
[2018-09-30] MEDS: docusate sod 100mg capsule PO SCH ×2 (08:39→21:31)
[2018-09-30] MEDS: sevelamer carbonate 800mg tablet PO SCH ×3 (08:40→21:32)
[2018-09-30] MEDS: pramipexole 0.25mg tablet PO SCH (08:40)
[2018-09-30] MEDS: levoTHYROXINE 100mcg tablet PO SCH (08:40)
[2018-09-30] MEDS: folic acid/vitamin B complex w/vitamin C 0.8mg tablet PO SCH (08:40)
[2018-09-30] MEDS: vitamin D (cholecalciferol) 1,000 unit tablet PO SCH (08:40)
[2018-09-30] MEDS: ezetimibe 10mg tablet PO SCH (08:41)
[2018-09-30] MEDS: metolazone 2.5mg tablet PO SCH (08:41)
[2018-09-30] MEDS: heparin, porcine 5000 units/ml vial SQ SCH ×2 (08:42→21:31)
[2018-09-30 10:00] VITALS: BP 164/86
--- NOTE | 2018-09-30 11:43 | NUR ---
TC placed to Norah Zambrano NP, to discuss pt concern that she is currently not prescribed Lasix. Review of previous orders show that Lasix was "completed" on 09/27. Pt also reports no BM x 10 days. Received Relistor yesterday and Colce/Miralax this am. Will wait to speak with Norah on return phone call.
--- NOTE | 2018-09-30 12:16 | NUR ---
reassessment: Pt no BM 10 DAYS; receiving colace, relistor. RN is aware and reports giving dulcolax suppository today following lunch. Power pudding added for all dinners given PO remains low 25-50% and fluctuating w/ constipation. Will continue to monitor. Recommendations: 1) Continue with renal CHO controlled diet, 1.2L fluid-restricted diet 2) Chop all TID; Nepro TIDWM per MD approval 3) operations clerk to help fill out menu daily 4) routine bowel care; power pudding at dinner for constipation 5) Wt per rx Addendum: 09/30/18 at [address] Amended: Links added.
[2018-09-30 17:00] VITALS: BP 160/99
--- NOTE | 2018-09-30 17:55 | NUR ---
Patient in room ORTHO 4014. I have received report from Mima RIDER and had the opportunity to ask questions and assume patient care.
[2018-09-30] MEDS: insulin glargine (Lantus) pen - multi-dose SQ SCH ×2 (21:00→21:36)
[2018-09-30] MEDS: pramipexole 1mg tablet PO SCH (21:32)
[2018-09-30] MEDS: atorvastatin 20mg tablet PO SCH (21:32)
[2018-09-30] MEDS: amitriptyline 50mg tablet PO SCH (21:32)
[2018-09-30 22:00] VITALS: BP 180/99
[2018-10-01] MEDS: HYDROcodone/acetaminophen 10/325mg tab PO PRN (05:13)
[2018-10-01 06:00] VITALS: BP 117/65
--- NOTE | 2018-10-01 06:20 | NUR ---
Problems reprioritized. Patient report given, questions answered & plan of care reviewed with Lisha RIDER.
[2018-10-01] MEDS: methylnaltrexone br 12mg/0.6ml inj***SubQ only SQ SCH (08:00)
[2018-10-01] MEDS: sevelamer carbonate 800mg tablet PO SCH ×3 (08:41→20:54)
[2018-10-01] MEDS: pramipexole 0.25mg tablet PO SCH (08:41)
[2018-10-01] MEDS: heparin, porcine 5000 units/ml vial SQ SCH ×2 (08:41→20:49)
[2018-10-01] MEDS: levoTHYROXINE 100mcg tablet PO SCH (08:41)
[2018-10-01] MEDS: ezetimibe 10mg tablet PO SCH (08:41)
[2018-10-01] MEDS: docusate sod 100mg capsule PO SCH ×2 (08:42→20:52)
[2018-10-01] MEDS: vitamin D (cholecalciferol) 1,000 unit tablet PO SCH (08:42)
[2018-10-01] MEDS: nystatin 15 GM powder TP SCH ×3 (08:42→20:55)
[2018-10-01] MEDS: folic acid/vitamin B complex w/vitamin C 0.8mg tablet PO SCH (08:42)
[2018-10-01] MEDS: metolazone 2.5mg tablet PO SCH (08:42)
[2018-10-01] MEDS: aspirin 81mg tablet.DR PO SCH (08:42)
[2018-10-01] MEDS: polyethylene glycol 3350 17gm powd pack PO SCH (08:43)
[2018-10-01] MEDS ORDERED: albumin (human) 25% 100ml IV 100 ML IV PRN (09:35)
[2018-10-01] MEDS ORDERED: heparin 1,000 units/ml 10ml inj HE ONE ×2 (09:40)
[2018-10-01 10:00] VITALS: BP 138/78
[2018-10-01 10:44] LABS: ALBUMIN 2.9 G/DL (3.4-5.0); ANION GAP 9 (8-16); BLOOD UREA NITROGEN 59 MG/DL (7-18); BUN/CREATININE RATIO 7.3 (6.6-38.0); CALCIUM 9.4 MG/DL (8.5-10.1); CHLORIDE 96 MMOL/L (99-107); GLUCOSE 139 MG/DL (70-104); MAGNESIUM 2.5 MG/DL (1.5-2.4); PHOSPHORUS 6.2 MG/DL (2.3-4.5); POTASSIUM 5.5 MMOL/L (3.5-5.1); SODIUM 132 MMOL/L (135-145); TOTAL CARBON DIOXIDE 27.1 MMOL/L (24-32); eGFR 5 ML/MIN
[2018-10-01 10:46] LABS: BASOPHILS # (AUTO) 0.1 X10'3 (0-0.2); BASOPHILS % (AUTO) 1.1 % (0-1); EOSINOPHILS # (AUTO) 0.2 X10'3 (0-0.9); EOSINOPHILS % (AUTO) 2.3 % (0-6); HEMATOCRIT 35.8 % (35.0-45.0); HEMOGLOBIN 11.9 g/dl (12.0-16.0); LYMPHOCYTES # (AUTO) 1.2 X10'3 (1.1-4.8); LYMPHOCYTES % (AUTO) 16.3 % (21-51); MEAN CORPUSCULAR HEMOGLOBIN 31.4 PG (27.0-31.0); MEAN CORPUSCULAR HGB CONC 33.2 g/dL (33.0-36.5); MEAN CORPUSCULAR VOLUME 94.5 FL (78-98); MEAN PLATELET VOLUME 7.8 FL (7.4-10.4); MONOCYTES # (AUTO) 0.7 X10'3 (0-0.9); NEUTROPHILS # (AUTO) 5.1 X10'3 (1.8-7.7); NEUTROPHILS % (AUTO) 70.3 % (42-75); PLATELET COUNT 224 X10'3 (140-440); RED BLOOD COUNT 3.78 X10'6 (4.20-5.60); WHITE BLOOD COUNT 7.3 X10'3 (4.5-11.0)
[2018-10-01 18:00] VITALS: BP 117/52
[2018-10-01] MEDS: insulin glargine (Lantus) pen - multi-dose SQ SCH ×2 (20:48→20:59)
[2018-10-01] MEDS: atorvastatin 20mg tablet PO SCH (20:52)
[2018-10-01] MEDS: amitriptyline 50mg tablet PO SCH (20:52)
[2018-10-01] MEDS: pramipexole 1mg tablet PO SCH (20:52)
[2018-10-01 22:00] VITALS: BP 137/78
[2018-10-02] MEDS: HYDROcodone/acetaminophen 10/325mg tab PO PRN (00:25)
[2018-10-02 06:18] LABS: BASOPHILS # (AUTO) 0.1 X10'3 (0-0.2); EOSINOPHILS # (AUTO) 0.1 X10'3 (0-0.9); EOSINOPHILS % (AUTO) 1.8 % (0-6); HEMATOCRIT 35.3 % (35.0-45.0); HEMOGLOBIN 11.4 g/dl (12.0-16.0); LYMPHOCYTES # (AUTO) 1.3 X10'3 (1.1-4.8); MEAN CORPUSCULAR HEMOGLOBIN 30.9 PG (27.0-31.0); MEAN CORPUSCULAR HGB CONC 32.3 g/dL (33.0-36.5); MEAN CORPUSCULAR VOLUME 95.6 FL (78-98); MEAN PLATELET VOLUME 7.6 FL (7.4-10.4); MONOCYTES # (AUTO) 0.6 X10'3 (0-0.9); MONOCYTES % (AUTO) 9.5 % (2-12); NEUTROPHILS # (AUTO) 4.2 X10'3 (1.8-7.7); NEUTROPHILS % (AUTO) 66.7 % (42-75); PLATELET COUNT 216 X10'3 (140-440); RED BLOOD COUNT 3.69 X10'6 (4.20-5.60); WHITE BLOOD COUNT 6.4 X10'3 (4.5-11.0)
--- NOTE | 2018-10-02 06:59 | NUR ---
Problems reprioritized. Patient report given, questions answered & plan of care reviewed with ADRY Velázquez.
[2018-10-02 07:22] VITALS: BP 123/83
[2018-10-02] MEDS: docusate sod 100mg capsule PO SCH (07:56)
[2018-10-02] MEDS: ezetimibe 10mg tablet PO SCH (07:56)
[2018-10-02] MEDS: aspirin 81mg tablet.DR PO SCH (07:56)
[2018-10-02] MEDS: folic acid/vitamin B complex w/vitamin C 0.8mg tablet PO SCH (07:56)
[2018-10-02] MEDS: vitamin D (cholecalciferol) 1,000 unit tablet PO SCH (07:56)
[2018-10-02] MEDS: levoTHYROXINE 100mcg tablet PO SCH (07:56)
[2018-10-02] MEDS: polyethylene glycol 3350 17gm powd pack PO SCH (07:56)
[2018-10-02] MEDS: pramipexole 0.25mg tablet PO SCH (07:57)
[2018-10-02] MEDS: sevelamer carbonate 800mg tablet PO SCH ×2 (07:57→12:45)
[2018-10-02] MEDS: nystatin 15 GM powder TP SCH ×2 (07:58→12:45)
[2018-10-02] MEDS: heparin, porcine 5000 units/ml vial SQ SCH (07:58)
[2018-10-02] MEDS: metolazone 2.5mg tablet PO SCH (08:00)
[2018-10-02 08:08] LABS: ANION GAP 8 (8-16); BLOOD UREA NITROGEN 29 MG/DL (7-18); BUN/CREATININE RATIO 5.7 (6.6-38.0); CALCIUM 9.4 MG/DL (8.5-10.1); CHLORIDE 99 MMOL/L (99-107); CREATININE 5.07 MG/DL (0.40-0.90); GLUCOSE 77 MG/DL (70-104); MAGNESIUM 2.3 MG/DL (1.5-2.4); PHOSPHORUS 4.3 MG/DL (2.3-4.5); POTASSIUM 4.6 MMOL/L (3.5-5.1); SODIUM 136 MMOL/L (135-145); TOTAL CARBON DIOXIDE 29.4 MMOL/L (24-32); eGFR 9 ML/MIN
[2018-10-02 10:37] VITALS: BP 105/51
== END 2018-10-02 14:24 | disposition home health service (06) | DRG 542 ==
LOC: ER 11:01 → ORTHO 4S 15:47
PROVIDERS: ADMIT Internal Medicine Critical Care Medicine; ATTEND Internal Medicine Critical Care Medicine
PROC: 2W3BX1Z Immobilization of Left Upper Arm using Splint (ICD-10-PCS; principal; 2018-09-20)
PROC: 0JH63XZ Insertion of Tunneled Vascular Access Device into Chest Subcutaneous Tissue and Fascia, Percutaneous Approach (ICD-10-PCS; 2018-09-21)
PROC: 02HV33Z Insertion of Infusion Device into Superior Vena Cava, Percutaneous Approach (ICD-10-PCS; 2018-09-21)
PROC: B548ZZA Ultrasonography of Superior Vena Cava, Guidance (ICD-10-PCS; 2018-09-21)
PROC: B5181ZA Fluoroscopy of Superior Vena Cava using Low Osmolar Contrast, Guidance (ICD-10-PCS; 2018-09-21)
PROC: 5A1D70Z Performance of Urinary Filtration, Intermittent, Less than 6 Hours Per Day (ICD-10-PCS; 2018-09-21)
PROC: 5A1D70Z Performance of Urinary Filtration, Intermittent, Less than 6 Hours Per Day (ICD-10-PCS; 2018-09-24)
PROC: 5A1D70Z Performance of Urinary Filtration, Intermittent, Less than 6 Hours Per Day (ICD-10-PCS; 2018-09-26)
PROC: 5A1D70Z Performance of Urinary Filtration, Intermittent, Less than 6 Hours Per Day (ICD-10-PCS; 2018-09-28)
PROC: 5A1D70Z Performance of Urinary Filtration, Intermittent, Less than 6 Hours Per Day (ICD-10-PCS; 2018-10-01)
DX: M80.022A Age-related osteoporosis with current pathological fracture, left humerus, initial encounter for fracture (principal); N18.6 End stage renal disease; I12.0 Hypertensive chronic kidney disease with stage 5 chronic kidney disease or end stage renal disease; E87.1 Hypo-osmolality and hyponatremia; Z68.41 Body mass index [BMI] 40.0-44.9, adult; E11.22 Type 2 diabetes mellitus with diabetic chronic kidney disease; E11.42 Type 2 diabetes mellitus with diabetic polyneuropathy; E66.01 Morbid (severe) obesity due to excess calories; G89.29 Other chronic pain; M54.9 Dorsalgia, unspecified; Z60.2 Problems related to living alone; W05.1XXA Fall from non-moving nonmotorized scooter, initial encounter; M79.7 Fibromyalgia; Z85.72 Personal history of non-Hodgkin lymphomas; Z86.73 Personal history of transient ischemic attack (TIA), and cerebral infarction without residual deficits; Z99.2 Dependence on renal dialysis; Z90.49 Acquired absence of other specified parts of digestive tract; Z90.710 Acquired absence of both cervix and uterus; Z87.440 Personal history of urinary (tract) infections; Z91.048 Other nonmedicinal substance allergy status; Y93.89 Activity, other specified; Y92.89 Other specified places as the place of occurrence of the external cause; Y99.8 Other external cause status; Z79.899 Other long term (current) drug therapy; Z79.4 Long term (current) use of insulin
CPT/HCPCS: 29105; 36415; 36558; 71045; 71046; 73060; 76937; 77001; 80048; 80053; 82948; 83036; 83735; 84100; 85025; 87040; 87081; 96374; 96375; 96376; 97110; 97116; 97161; 97530; 97535; 99152; 99153; 99285; A9270; C1750; C1894; G0257; G0378; J1170; J1644; J1815; J2212; J2250; J2270; J2405; J3010; J7030; P9047

== ENCOUNTER 2018-10-13 09:26 | Emergency (ER) | payer MEDICARE, MEDICAID ==
[~2018-10-13] VITALS: Ht 162.6 cm; Wt 122.7 kg
[~2018-10-13 09:26] MED LIST changes: +ASPI81TA49 PO; +ATOR40TA71 PO; +CARV3.122 PO; +DIALYVITE PO; -DIPH-423 PO; +FURO-149 PO; +FURO40TA4 PO; -FURO80TA3 PO; -HEPA500017 SQ; +HYDR-4353 PO; -HYDR-4383 PO; +INSU100I31 SQ; -INSU100V5 IJ; -LACT10SO32 PO; -LANTUS SQ; +LEVO100T PO; -LEVO125T8 PO; -MULT1TAB74 PO; +NOVLG SQ; +POLY17PO36 PO; -PRAM0.5T12 PO; +PRAM0.5T3 PO; -PREG150C PO; -ROSU40TA22 PO; -SULF1TAB49 PO; +ZAR5T PO; -ZOF4I IV
[2018-10-13 09:37] VITALS: BP 148/100
[2018-10-13] MEDS ORDERED: HYDROcodone/acetaminophen 10/325mg tab PO ONE (09:50)
== END 2018-10-13 11:16 | disposition home or self-care (01) ==
LOC: ER 09:27
DX: S42.292A Other displaced fracture of upper end of left humerus, initial encounter for closed fracture (principal); I10 Essential (primary) hypertension; G89.29 Other chronic pain; M79.7 Fibromyalgia; E11.42 Type 2 diabetes mellitus with diabetic polyneuropathy; Z86.73 Personal history of transient ischemic attack (TIA), and cerebral infarction without residual deficits; Z99.2 Dependence on renal dialysis; Z90.49 Acquired absence of other specified parts of digestive tract; Z90.710 Acquired absence of both cervix and uterus; Z98.890 Other specified postprocedural states; Z79.82 Long term (current) use of aspirin; Z79.899 Other long term (current) drug therapy; Z79.4 Long term (current) use of insulin; W18.49XA Other slipping, tripping and stumbling without falling, initial encounter; Y93.89 Activity, other specified; Y92.89 Other specified places as the place of occurrence of the external cause; Y99.9 Unspecified external cause status
CPT/HCPCS: 29105; 99284

== ENCOUNTER 2019-01-14 05:22 | Day surgery (SDC) | payer MEDICARE, MEDICAID ==
[~2019-01-14] VITALS: Ht 162.6 cm; Wt 128.7 kg
[2019-01-14] MEDS ORDERED: normal saline 1000ml 1,000 ML IV SCH ×2 (06:30→08:22)
[2019-01-14 06:39] VITALS: BP 137/84
[2019-01-14] MEDS ORDERED: HYDR-3972 PO (06:59)
[2019-01-14 07:22] LABS: BASOPHILS # (AUTO) 0.1 X10'3 (0-0.2); BASOPHILS % (AUTO) 0.9 % (0-1); EOSINOPHILS # (AUTO) 0.2 X10'3 (0-0.9); EOSINOPHILS % (AUTO) 1.7 % (0-6); HEMATOCRIT 30.5 % (35.0-45.0); HEMOGLOBIN 10.4 g/dl (12.0-16.0); LYMPHOCYTES # (AUTO) 1.3 X10'3 (1.1-4.8); LYMPHOCYTES % (AUTO) 13.8 % (21-51); MEAN CORPUSCULAR HEMOGLOBIN 33.1 PG (27.0-31.0); MEAN CORPUSCULAR HGB CONC 34.1 g/dL (33.0-36.5); MEAN CORPUSCULAR VOLUME 96.9 FL (78-98); MEAN PLATELET VOLUME 8.1 FL (7.4-10.4); MONOCYTES # (AUTO) 0.6 X10'3 (0-0.9); NEUTROPHILS # (AUTO) 6.9 X10'3 (1.8-7.7); NEUTROPHILS % (AUTO) 76.6 % (42-75); PLATELET COUNT 205 X10'3 (140-440); RED BLOOD COUNT 3.14 X10'6 (4.20-5.60); RED CELL DISTRIBUTION WIDTH 15.9 % (11.5-14.5); WHITE BLOOD COUNT 9.1 X10'3 (4.5-11.0)
[2019-01-14 07:26] LABS: ALBUMIN 2.9 G/DL (3.4-5.0); ANION GAP 12 (8-16); BLOOD UREA NITROGEN 86 MG/DL (7-18); BUN/CREATININE RATIO 12.4 (6.6-38.0); CHLORIDE 93 MMOL/L (99-107); CREATININE 6.93 MG/DL (0.40-0.90); GLUCOSE 442 MG/DL (70-104); POTASSIUM 4.7 MMOL/L (3.5-5.1); SODIUM 129 MMOL/L (135-145); TOTAL CARBON DIOXIDE 24.4 MMOL/L (24-32); eGFR 6 ML/MIN
[2019-01-14] MEDS ORDERED: midazolam 2 mg/2 ml injection IV PRN (08:25)
[2019-01-14] MEDS ORDERED: LIDOcaine 1% 30ml preserv. free vial SQ ONE (08:25)
[2019-01-14] MEDS ORDERED: fentaNYL/PF 50MCG/1 ML 2ML syringe IV PRN (08:25)
[2019-01-14] MEDS ORDERED: iohexol 300mg/ml 100ml inj. ONE (08:50)
[2019-01-14] MEDS ORDERED: LIDOcaine 1%/PF 5ML 10 MG/ML VIAL ONE (08:50)
[2019-01-14] MEDS ORDERED: fentaNYL/PF 50MCG/1 ML 2ML syringe ONE ×2 (08:54→09:24)
[2019-01-14] MEDS ORDERED: heparin 1,000 UNITS/NS 500ml 500 ML ONE (08:54)
[2019-01-14] MEDS ORDERED: midazolam 2 mg/2 ml injection ONE ×2 (08:54→09:31)
[2019-01-14 10:15] VITALS: BP 123/71
[2019-01-14 10:30] VITALS: BP 171/46
[2019-01-14 10:45] VITALS: BP 165/68
--- NOTE | 2019-01-15 13:49 | NUR ---
late entry physical assessment done at time of visit, forgot to chart on day of visit. adding it now.
--- NOTE | 2019-01-15 15:54 | NUR ---
PREVIOUS CHARTING ATTEMPT CLOSED OUT. PHYSICAL ASSESSMENT COMPLETED
== END 2019-01-14 11:10 | disposition home or self-care (01) ==
LOC: SSTAY O 05:22
PROVIDERS: ATTEND Radiology Vascular & Interventional Radiology
DX: T82.858A Stenosis of other vascular prosthetic devices, implants and grafts, initial encounter (principal); E11.40 Type 2 diabetes mellitus with diabetic neuropathy, unspecified; E11.22 Type 2 diabetes mellitus with diabetic chronic kidney disease; I12.0 Hypertensive chronic kidney disease with stage 5 chronic kidney disease or end stage renal disease; N18.6 End stage renal disease; G89.29 Other chronic pain; Z85.72 Personal history of non-Hodgkin lymphomas; Z99.2 Dependence on renal dialysis; Z87.440 Personal history of urinary (tract) infections; Z86.73 Personal history of transient ischemic attack (TIA), and cerebral infarction without residual deficits; Z98.890 Other specified postprocedural states; Z90.710 Acquired absence of both cervix and uterus; Z91.09 Other allergy status, other than to drugs and biological substances; Z79.899 Other long term (current) drug therapy; Y83.2 Surgical operation with anastomosis, bypass or graft as the cause of abnormal reaction of the patient, or of later complication, without mention of misadventure at the time of the procedure; Y92.89 Other specified places as the place of occurrence of the external cause
CPT/HCPCS: 36415; 36902; 80048; 85025; 99152; 99153; C1725; C1769; C1894; J1644; J2250; J3010; J7030; Q9967

== ENCOUNTER 2019-03-28 11:53 | Emergency (ER) | payer MEDICARE, MEDICAID ==
[~2019-03-28] VITALS: Ht 162.6 cm; Wt 121.8 kg
[~2019-03-28 11:53] MED LIST changes: -COL100C PO; +HYDR-3972 PO
--- NOTE | 2019-03-28 12:42 | NUR ---
XRAY IN PROGRESS.
[2019-03-28 13:26] VITALS: BP 133/79
== END 2019-03-28 15:17 | disposition home or self-care (01) ==
LOC: ER 11:54
DX: S90.31XA Contusion of right foot, initial encounter (principal); G89.29 Other chronic pain; M25.512 Pain in left shoulder; E11.42 Type 2 diabetes mellitus with diabetic polyneuropathy; I12.0 Hypertensive chronic kidney disease with stage 5 chronic kidney disease or end stage renal disease; E11.22 Type 2 diabetes mellitus with diabetic chronic kidney disease; N18.6 End stage renal disease; N17.9 Acute kidney failure, unspecified; Z99.2 Dependence on renal dialysis; M79.7 Fibromyalgia; Z90.49 Acquired absence of other specified parts of digestive tract; Z90.710 Acquired absence of both cervix and uterus; Z98.890 Other specified postprocedural states; Z60.2 Problems related to living alone; Z88.8 Allergy status to other drugs, medicaments and biological substances; Z79.82 Long term (current) use of aspirin; Z79.4 Long term (current) use of insulin; Z79.899 Other long term (current) drug therapy; W18.39XA Other fall on same level, initial encounter; Y93.89 Activity, other specified; Y92.89 Other specified places as the place of occurrence of the external cause; Y99.8 Other external cause status
CPT/HCPCS: 73030; 73630; 93005; 99284

== ENCOUNTER 2019-04-10 00:31 | Emergency (ER) | payer MEDICARE, MEDICAID ==
[~2019-04-10] VITALS: Ht 162.6 cm; Wt 127.3 kg
--- NOTE | 2019-04-10 00:53 | NUR ---
Dialysis fistula on Left Arm, no BP or IV on left arm
[2019-04-10] MEDS ORDERED: LIDOcaine 1% W/epiNEPHrine 1:200,000 10ml vial IJ ONE (01:55)
--- NOTE | 2019-04-10 04:10 | NUR ---
Patient sleeping comfortably in bed.
[2019-04-10 05:38] VITALS: BP 111/83
== END 2019-04-10 05:42 | disposition home or self-care (01) ==
LOC: ER 00:31
DX: S81.811A Laceration without foreign body, right lower leg, initial encounter (principal); S20.222A Contusion of left back wall of thorax, initial encounter; S30.0XXA Contusion of lower back and pelvis, initial encounter; E11.42 Type 2 diabetes mellitus with diabetic polyneuropathy; I10 Essential (primary) hypertension; R05 Cough; G89.29 Other chronic pain; M79.7 Fibromyalgia; R07.81 Pleurodynia; Z97.10 Presence of artificial limb (complete) (partial), unspecified; Z86.73 Personal history of transient ischemic attack (TIA), and cerebral infarction without residual deficits; Z90.49 Acquired absence of other specified parts of digestive tract; Z98.890 Other specified postprocedural states; Z60.2 Problems related to living alone; Z88.8 Allergy status to other drugs, medicaments and biological substances; Z79.82 Long term (current) use of aspirin; Z79.4 Long term (current) use of insulin; Z79.899 Other long term (current) drug therapy; W18.39XA Other fall on same level, initial encounter; Y93.89 Activity, other specified; Y92.89 Other specified places as the place of occurrence of the external cause; Y99.8 Other external cause status
CPT/HCPCS: 12004; 71046; 73590; 99284

== ENCOUNTER 2022-06-23 11:14 | Day surgery (SDC) | payer MEDICARE, MEDICAID ==
[~2022-06-23] VITALS: Ht 162.6 cm; Wt 112.2 kg
[2022-06-23 08:11] VITALS: BP 124/56
[~2022-06-23 11:14] MED LIST changes: -POLY17PO36 PO; +POLY17PO59 PO
[2022-06-23] MEDS ORDERED: normal saline 1000ml 1,000 ML IV PRN (12:05)
[2022-06-23 12:55] LABS: BASOPHILS % (AUTO) 0.6 % (0-1); EOSINOPHILS % (AUTO) 0.6 % (0-6); HEMATOCRIT 34.5 % (35.0-45.0); HEMOGLOBIN 11.2 g/dl (12.0-16.0); LYMPHOCYTES # (AUTO) 0.8 X10'3 (1.1-4.8); LYMPHOCYTES % (AUTO) 10.6 % (21-51); MEAN CORPUSCULAR HEMOGLOBIN 31.5 PG (27.0-31.0); MEAN CORPUSCULAR HGB CONC 32.5 g/dL (33.0-36.5); MEAN CORPUSCULAR VOLUME 96.9 FL (78-98); MONOCYTES # (AUTO) 0.4 X10'3 (0-0.9); MONOCYTES % (AUTO) 5.8 % (2-12); NEUTROPHILS % (AUTO) 82.4 % (42-75); PLATELET COUNT 132 X10'3 (140-440); RED BLOOD COUNT 3.56 X10'6 (4.20-5.60); RED CELL DISTRIBUTION WIDTH 16.5 % (11.5-14.5); WHITE BLOOD COUNT 7.3 X10'3 (4.5-11.0)
[2022-06-23] MEDS ORDERED: CYCL-394 PO (12:57)
[2022-06-23] MEDS ORDERED: MIDO2.5T14 PO (12:57)
[2022-06-23 13:05] LABS: ALBUMIN 3.2 G/DL (3.4-5.0); ANION GAP 13 (8-16); BLOOD UREA NITROGEN 84 MG/DL (7-18); BUN/CREATININE RATIO 8.3 (10.0-20.0); CALCIUM 8.7 MG/DL (8.5-10.1); CHLORIDE 100 MMOL/L (99-107); CREATININE 10.12 MG/DL (0.40-0.90); GLUCOSE 131 MG/DL (70-104); POTASSIUM 5.7 MMOL/L (3.5-5.1); SODIUM 137 MMOL/L (135-145); TOTAL CARBON DIOXIDE 24.1 MMOL/L (24-32); eGFR 4 ML/MIN
[2022-06-23] MEDS ORDERED: heparin 1,000unit/ml 10ml vial 10 ML ONE (14:57)
[2022-06-23] MEDS ORDERED: fentaNYL/PF 50MCG/1 ML 2ML syringe ONE (14:58)
[2022-06-23] MEDS ORDERED: midazolam 1 mg/ML 2ml injection ONE (14:58)
[2022-06-23] MEDS ORDERED: diphenhydrAMINE 50 mg/ml inj ONE (15:15)
[2022-06-23 15:50] VITALS: BP 112/72
[2022-06-23 16:00] VITALS: BP 105/61
[2022-06-23 16:15] VITALS: BP 98/65
[2022-06-23 16:30] VITALS: BP 101/67
== END 2022-06-23 17:00 | disposition home or self-care (01) ==
LOC: SSTAY O 11:14
PROVIDERS: ATTEND Radiology Vascular & Interventional Radiology
DX: T82.868A Thrombosis due to vascular prosthetic devices, implants and grafts, initial encounter (principal); E11.22 Type 2 diabetes mellitus with diabetic chronic kidney disease; N18.6 End stage renal disease; Z88.8 Allergy status to other drugs, medicaments and biological substances; Z91.09 Other allergy status, other than to drugs and biological substances; Z79.899 Other long term (current) drug therapy; Z79.4 Long term (current) use of insulin; Z90.710 Acquired absence of both cervix and uterus; Z98.890 Other specified postprocedural states; Y83.2 Surgical operation with anastomosis, bypass or graft as the cause of abnormal reaction of the patient, or of later complication, without mention of misadventure at the time of the procedure; Y92.89 Other specified places as the place of occurrence of the external cause
CPT/HCPCS: 36415; 36558; 76937; 77001; 80048; 85025; 85610; 99152; C1750; C1769; J1200; J1644; J2250; J3010; J7030; 99153; A4620; A9270; C1894